=== PATIENT | female | born 1985 | race Caucasian/White ===

== ENCOUNTER → 2021-03-26 | Outpatient (CLI) | payer OTHER ==
--- NOTE | 2021-03-26 12:53 | XR ---
Left shoulder and left clavicle history: Trauma and pain 2 views of the left clavicle, 3 views of left shoulder Bone mineralization, joint spaces and alignment are maintained. Left lung apex as visualized is neil l. No fracture or dislocation evident. IMPRESSION: No acute abnormalities evident.
== END | disposition home or self-care (01) ==
LOC: RADXRMAIN 12:11
PROVIDERS: ATTEND Emergency Medicine
DX: M25.512 Pain in left shoulder (principal)